=== PATIENT | male | born 1960 ===

== ENCOUNTER 2020-10-11 06:55 | Day surgery (SDC) | payer OTHER | END 2020-10-11 13:20 | disposition home or self-care (01) | LOC: AMB-ENDOS 06:55 | PROVIDERS: ATTEND Colon & Rectal Surgery | DX: D12.2 Benign neoplasm of ascending colon (principal); D12.3 Benign neoplasm of transverse colon; K64.8 Other hemorrhoids; Z20.828 Contact with and (suspected) exposure to other viral communicable diseases; Z12.11 Encounter for screening for malignant neoplasm of colon ==

== ENCOUNTER 2020-10-16 15:38 | Outpatient (CLI) | payer OTHER | END 2020-10-16 15:44 | disposition home or self-care (01) | LOC: LAB 15:38 | PROVIDERS: ATTEND Internal Medicine Geriatric Medicine | DX: D68.8 Other specified coagulation defects (principal) ==